=== PATIENT | female | born 1955 | race Two or more races ===

== ENCOUNTER 2019-10-21 15:06 | Outpatient (CLI) | payer MEDICARE | END 2019-10-21 23:59 | disposition home or self-care (01) | LOC: 64 CT 15:06 | PROVIDERS: ATTEND Family Medicine | DX: R91.8 Other nonspecific abnormal finding of lung field (principal); M47.814 Spondylosis without myelopathy or radiculopathy, thoracic region | CPT/HCPCS: 71250 ==